=== PATIENT | male | born 1955 | race Caucasian/White ===

== ENCOUNTER 2022-02-16 06:59 | Outpatient (CLI) | payer OTHER, SELFPAY ==
--- NOTE | ~2022-02-16 | US_ITS ---
EXAMINATION: US aorta [facility] [place] DATE: 02/16/2022 07:32 INDICATION: Personal history of nicotine dependence, hypertension, hypercholesterolemia, diabetes TECHNIQUE: Grayscale, color Doppler, and pulsed Doppler images of the aorta and common iliac arteries were obtained. COMPARISON: None. FINDINGS: Maximum vascular dimensions are as follows: Proximal aorta: 1.8 cm Mid aorta: 1.5 cm Distal aorta: 1.6 cm Right common iliac artery: 1.2 cm Left common iliac artery: 1.0 cm There is no evidence of abdominal aortic aneurysm. IMPRESSION: 1. No sonographically detected abdominal aortic aneurysm. Reviewed, dictated and finalized at location B.
== END 2022-02-16 07:00 | disposition home or self-care (01) ==
PROVIDERS: PCP Internal Medicine; Visit Provider Internal Medicine
DX: Z12.2 Encounter for screening for malignant neoplasm of respiratory organs (principal); Z87.891 Personal history of nicotine dependence
CPT/HCPCS: 76706

== ENCOUNTER 2023-03-25 00:49 | Day surgery (SDC) | payer OTHER, SELFPAY ==
[2023-03-19 08:51] VITALS: BMI 30.4
[2023-03-25 08:58] VITALS: BP 138/72; PULSE 78; RESP 18; TEMP 36.6; O2SAT 100
[2023-03-25 08:58] LABS: Glucose Point of Care 209 mg/dl (65-105)
[2023-03-25] MEDS: LACTATED RINGERS 1,000 ML 150 ML IV CONT (09:01)
--- NOTE | 2023-03-25 10:10 | WPDANESEPPF ---
Anes - Initial Pre Proc Eval Procedure: Operation Date: 03/25/23 10:30 Proposed Procedures p Screening Colonoscopy - Phill Miller MD Date/Time: 03/25/23 10:10 Surgeon: Phill Miller MD Pre Op Diagnosis: neoplasm screening Patient Data Age: 67 Gender: M Height: 1.73 m Weight: 90 kg Last Vital Signs Temp 97.9 F 03/25/23 08:58 Pulse 78 03/25/23 08:58 Resp 18 03/25/23 08:58 BP 138/72 03/25/23 08:58 Pulse Ox 100 03/25/23 08:58 O2 Del Method Room Air 03/25/23 08:58 Allergies Allergy/AdvReac Type Severity Reaction Status Date / Time No Known Allergies Allergy Verified 03/25/23 08:57 Home Medications Medication Instructions Recorded Confirmed Type aspirin 81 mg tablet,delayed 81 mg PO DAILY 10/05/19 03/25/23 History release (Adult Low Dose Aspirin) sacubitril 49 mg-valsartan 51 mg 1 tablet PO BID 03/07/20 03/25/23 History tablet (Entresto) pen needle, diabetic 32 gauge x See Rx Instructions .Route 05/03/20 01/07/23 Rx 5/32 (1st Tier Unifine Pentips .COMPLEX #100 syringes Plus) pen needle, diabetic 31 gauge x #100 ea 09/29/20 01/07/23 Rx 1/4 (ReliOn [place]) torsemide 20 mg tablet 20 mg PO .prn PRN Edema 09/29/20 03/25/23 History spironolactone 25 mg tablet 25 mg PO .everyother day 09/22/21 03/25/23 History carvedilol 25 mg tablet 25 mg PO BID 01/07/23 03/25/23 History insulin human U-100 NPH-regulr 60 unit (0.6 mL) subcut BID #10 mL 01/07/23 03/25/23 Rx 70-30 mix 100 unit/mL subcutaneous susp (Novolin 70/30 U-100 Insulin) metformin 500 mg tablet 1,000 mg PO BIDWM 03/19/23 03/25/23 History rosuvastatin 40 mg tablet 40 mg PO DAILY 03/19/23 03/25/23 History Laboratory Tests 03/25/23 08:56 POC Capillary Glucose 209 H mg/dl (65-105) Patient hx anesthesia problems: none Family hx anesthesia problems: none Results Review: All pre-operative results and documents have been reviewed as part of the pre-operative evaluation. [facility] Past Medical History Medical History (Updated 01/07/23 @ 14:12 by Lucy Agarwal APRN) Chronic systolic heart failure COVID-19 Family History Family History Sibling Diabetes mellitus Family history of gastrointestinal disorder Social History Social History (Updated 01/07/23 @ 09:21 by Abida Valladares MA) Smoking packs per day: 3 Smoking cigarettes per day: 60.0 Years smoked: 34 Smoking pack-years: 102.00 Smoking status: Former smoker Tobacco type: cigarettes Second hand tobacco smoke exposure: Yes Smoking end date: 11/25/11 Alcohol intake: current Drinks per week: 1 Alcohol use details: beer Substance use: never Substance use type: does not use Lack of Transportation: No Lack of Food: Never True Current Housing: I Have Housing Concerned About Future Housing: No Difficulty Paying Gas/Electric Bills: No Difficulty Paying for Meds: No Currently Unemployed: No Education: Trade/Vocational Certificate Difficulty w/ Childcare or Family Care: No Living arrangements: with family Spiritual care concerns: No Anes - Eval Final PreProcedure Day of Procedure 03/25/23 10:10 Patient weight: normal Heart: regular rate and rhythm Lungs: clear to auscultation Airway: Mallampati scale class II Neurological: alert and oriented Last oral intake: >/= 8 hours Emergent: no Anesthetic plan: proceed Anesthesia type and monitoring: general GIVS and standard monitoring Results Review: All pre-operative results and documents have been reviewed as part of the pre-operative evaluation. Informed Consent: The patient's anesthetic plan and its attendant risks and benefits were discussed with the patient/family/POA. Questions were solicited and answers provided to the satisfaction of the patient/family/POA.
--- NOTE | 2023-03-25 10:17 | PM.HPGS ---
History of Present Illness History of Present Illness Consent: Risks, benefits, and alternatives have been discussed and questions answered. Patient agrees to proceed with procedure. Chief complaint: neoplasm screening Narrative: Ronny Roland is a 67 year old male here for screening colonoscopy, last one about 7 years ago Review of Systems Constitutional: Constitutional: Denies headache(s) and Denies weakness Eyes: Eyes: Denies blurry vision ENT: Reports Normal hearing present, Denies headache(s) and Denies neck pain Cardiovascular: Cardiovascular: Denies chest pain and Denies dyspnea Respiratory: Respiratory: Denies dyspnea Gastrointestinal: Gastrointestinal: Reports no additional gastrointestinal complaints Genitourinary: Genitourinary: Denies dysuria Musculoskeletal: Musculoskeletal: Denies neck pain Integumentary/Breasts: Skin/Breast: Denies dry skin Neurologic: Reports Normal hearing present, Denies headache(s) and Denies weakness Psychiatric: Psychiatric: Denies anxiety Endocrine: Endocrine: Denies change in body appearance Hematologic/Lymphatic: Hematologic/Lymphatic: Denies easy bleeding Allergic/Immunologic: Allergic/Immunologic: Denies urticaria PMFSH Past Medical History Medical History (Updated 01/07/23 @ 14:12 by Lucy Agarwal APRN) Chronic systolic heart failure COVID-19 Family History Family History Sibling Diabetes mellitus Family history of gastrointestinal disorder Social History Social History (Updated 01/07/23 @ 09:21 by Abida Valladares MA) Smoking packs per day: 3 Smoking cigarettes per day: 60.0 Years smoked: 34 Smoking pack-years: 102.00 Smoking status: Former smoker Tobacco type: cigarettes Second hand tobacco smoke exposure: Yes Smoking end date: 11/25/11 Alcohol intake: current Drinks per week: 1 Alcohol use details: beer Substance use: never Substance use type: does not use Lack of Transportation: No Lack of Food: Never True Current Housing: I Have Housing Concerned About Future Housing: No Difficulty Paying Gas/Electric Bills: No Difficulty Paying for Meds: No Currently Unemployed: No Education: Trade/Vocational Certificate Difficulty w/ Childcare or Family Care: No Living arrangements: with family Spiritual care concerns: No Meds Home Medications and Allergies Home Medications Medication Instructions Recorded Confirmed Type aspirin 81 mg tablet,delayed 81 mg PO DAILY 10/05/19 03/25/23 History release (Adult Low Dose Aspirin) sacubitril 49 mg-valsartan 51 mg 1 tablet PO BID 03/07/20 03/25/23 History tablet (Entresto) pen needle, diabetic 32 gauge x See Rx Instructions .Route 05/03/20 01/07/23 Rx 5/32 (1st Tier Unifine Pentips .COMPLEX #100 syringes Plus) pen needle, diabetic 31 gauge x #100 ea 09/29/20 01/07/23 Rx 1/4 (ReliOn [place]) torsemide 20 mg tablet 20 mg PO .prn PRN Edema 09/29/20 03/25/23 History spironolactone 25 mg tablet 25 mg PO .everyother day 09/22/21 03/25/23 History carvedilol 25 mg tablet 25 mg PO BID 01/07/23 03/25/23 History insulin human U-100 NPH-regulr 60 unit (0.6 mL) subcut BID #10 mL 01/07/23 03/25/23 Rx 70-30 mix 100 unit/mL subcutaneous susp (Novolin 70/30 U-100 Insulin) metformin 500 mg tablet 1,000 mg PO BIDWM 03/19/23 03/25/23 History rosuvastatin 40 mg tablet 40 mg PO DAILY 03/19/23 03/25/23 History Allergies Allergy/AdvReac Type Severity Reaction Status Date / Time No Known Allergies Allergy Verified 03/25/23 08:57 Vital Signs Vital Signs - 24 hr 03/25/23 08:58 Temperature 97.9 F Pulse Rate 78 Respiratory Rate 18 Blood Pressure 138/72 Pulse Oximetry 100 Oxygen Delivery Room Air Exam Const: General: comfortable and no acute distress HENMT: Face/Nose/Sinus: Normal nares present Eyes: General: appearance normal, both eyes and all related structures Neck:
[2023-03-25 10:45] VITALS: BP 108/57; PULSE 72; RESP 28; O2SAT 100
[2023-03-25 10:55] VITALS: BP 107/62; PULSE 66; RESP 23; O2SAT 95
[2023-03-25 11:05] VITALS: BP 115/65; PULSE 65; RESP 30; O2SAT 98
== END 2023-03-25 11:14 | disposition home or self-care (01) ==
PROVIDERS: Visit Provider Internal Medicine Gastroenterology
PROC: 0DJD8ZZ Inspection of Lower Intestinal Tract, Via Natural or Artificial Opening Endoscopic (ICD-10-PCS; CPT 45378; principal; 2023-03-25 10:30)
DX: Z12.11 Encounter for screening for malignant neoplasm of colon (principal); D12.2 Benign neoplasm of ascending colon; D12.5 Benign neoplasm of sigmoid colon; K57.30 Diverticulosis of large intestine without perforation or abscess without bleeding; K64.8 Other hemorrhoids; I50.22 Chronic systolic (congestive) heart failure; Z79.82 Long term (current) use of aspirin; Z79.4 Long term (current) use of insulin; Z79.84 Long term (current) use of oral hypoglycemic drugs; Z87.891 Personal history of nicotine dependence
CPT/HCPCS: 45385; 82948; 88305; J2704; J7120